=== PATIENT | male | born 1940 | race African-American/Black ===

== ENCOUNTER 2017-11-22 08:51 | Day surgery (SDC) | payer BC ==
[2017-11-19 14:51] VITALS: BMI 27.8
[2017-11-22 10:22] VITALS: TEMP 97.7
[2017-11-22 11:37] VITALS: BP 115/75; PULSE 82
--- NOTE | 2017-11-23 13:34 | PATH ---
Surgical Pathology Report Patient Name: ANTOLIN MCGUIRE [facility]. Rec. #: [id number] /Age/Gender: 1940 (Age: 77) / M Account: [id number] Location: [facility]-ENDOSCOPY Taken: 11/22/2017 Received: 11/22/2017 Reported: 11/23/2017 Physicians: Arianna Basurto M.D. Specimen(s) Received A: BX. DISTAL TRANSVERSE COLON POLYP B: BX. ANASTOMOSIS C: BX. PROXIMAL TRANSVERSE COLON POLYP Clinical History Colon cancer surveillance Postoperative diagnosis: Polyps, status post patent anastomosis, diverticulosis Final Diagnosis A. DISTAL TRANSVERSE COLON, POLYP, BIOPSY: TUBULAR ADENOMA. B. COLON, ANASTOMOSIS, BIOPSY: COLONIC MUCOSA WITH PROMINENT LYMPHOID AGGREGATE. C. PROXIMAL TRANSVERSE COLON, POLYP, BIOPSY: POLYPOID MUCOSA WITH PROMINENT LYMPHOID AGGREGATE. Electronically Signed Britt Martins M.D. Gross Description A. Received in formalin, labeled "biopsy distal transverse colon polyp" are 2 sanchez, irregular portions of soft tissue measuring 0.2 and 0.3 cm. in greatest dimension. The specimens are submitted in toto in one cassette. B. Received in formalin, labeled "biopsy anastomosis" are 5 sanchez, irregular portions of soft tissue ranging from 0.2-0.5 cm. in greatest dimension. The specimens are submitted in toto in one cassette. C. Received in formalin, labeled "biopsy proximal transverse colon polyp" is a sanchez, irregular portion of soft tissue measuring 0.5 cm. in greatest dimension. The specimen is submitted in toto in one cassette. 11/22/2017 [facility]2017
== END 2017-11-22 11:37 | disposition home or self-care (01) ==
LOC: JASU-ENDO 08:51
PROVIDERS: ATTEND Internal Medicine Gastroenterology
PROC: 0DBL8ZX Excision of Transverse Colon, Via Natural or Artificial Opening Endoscopic, Diagnostic (ICD-10-PCS; principal; 2017-11-22 10:00)
DX: Z12.11 Encounter for screening for malignant neoplasm of colon (principal); Z85.038 Personal history of other malignant neoplasm of large intestine; D12.3 Benign neoplasm of transverse colon; K57.30 Diverticulosis of large intestine without perforation or abscess without bleeding; Z98.0 Intestinal bypass and anastomosis status
CPT/HCPCS: 88305-TC

== ENCOUNTER 2021-02-13 10:54 | Observation (INO) | payer BC ==
[2021-02-13 11:53] VITALS: BMI 24.2
[2021-02-13 12:06] LABS: BASO % 0.4 % (0-2.0); EOS % 0.5 % (0-4.5); HEMATOCRIT 32.9 % (35.4-49); HEMOGLOBIN 10.8 GM/dL (11.7-16.9); LYMPH % 28.8 % (8-40); MCHC 32.8 g/dl (32.0-35.9); MEAN CELL VOLUME 85.4 fl (80-96); MEAN PLT VOLUME 8.7 fl (7.5-11.1); MONO % 7.4 % (3.8-10.2); NEUT % 62.9 % (42.8-82.8); PLATELET COUNT 202 10^3/uL (134-434); RBC 3.85 M/mm3 (4.00-5.60); RDW 16.5 % (11.9-15.9); WHITE BLOOD COUNT 4.6 K/mm3 (4.0-10.0)
[2021-02-13 12:52] LABS: ALBUMIN 3.6 g/dl (3.4-5.0); ALK PHOS 54 U/L (45-117); ANION GAP 6 MMOL/L (8-16); BILIRUBIN,TOTAL 0.5 mg/dL (0.2-1); BLOOD UREA NITROGEN 19.1 mg/dL (7-18); CALCIUM 9.2 mg/dL (8.5-10.1); CHLORIDE 113 mmol/L (98-107); CO2 24 mmol/L (21-32); CREATININE 1.7 mg/dL (0.55-1.3); GLUCOSE,RANDOM 135 mg/dL (74-106); MAGNESIUM 2.2 mg/dL (1.8-2.4); N-TERMINAL BNP 1031.1 pg/ml (5-450); SGOT/AST 22 U/L (15-37); SGPT/ALT 12 U/L (13-61); SODIUM 143 mmol/L (136-145); TOT PROT 7.3 g/dl (6.4-8.2)
[2021-02-13 13:42] LABS: URINE APPEARANCE CLEAR; URINE BILIRUBIN NEGATIVE (NEGATIVE); URINE COLOR YELLOW; URINE GLUCOSE (UA) NEGATIVE (NEGATIVE); URINE KETONE NEGATIVE (NEGATIVE); URINE LEUK ESTERASE NEGATIVE (NEGATIVE); URINE NITRITE NEGATIVE (NEGATIVE); URINE PROTEIN NEGATIVE (NEGATIVE); URINE UROBILINOGEN 0.2 mg/dL (0.2-1.0)
[2021-02-13] MEDS ORDERED: ACETAMINOPHEN 325 MG TABLET (FP) PO PRN (14:23)
[2021-02-13] MEDS ORDERED: MEXILETINE HCL 150 MG PO SCH (14:30)
[2021-02-13] MEDS ORDERED: CARBIDOPA/LEVODOPA 25/100 TABLET (FP) ONE (14:41)
[2021-02-13] MEDS: CARBIDOPA/LEVODOPA 25/100 TABLET (FP) PO SCH ×2 (14:52→21:50)
[2021-02-13 15:13] LABS: RETICULOCYTES 0.84 % (0.5-1.5)
[2021-02-13 15:27] LABS: IRON SERUM 77 ug/dL (50-175); TOTAL IRON BINDING CAPACITY 231 ug/dL (250-450)
[2021-02-13] MEDS ORDERED: MAGNESIUM SULF 50% (8.12 MEQ/2 ML-1 GM VIAL) IVPB ONE (15:54)
[2021-02-13] MEDS ORDERED: MAGNESIUM SULFATE IN WATER 2 GM/50 ML IVPB IVPB ONE (16:17)
[2021-02-13] MEDS ORDERED: MAGNESIUM OXIDE 400 MG TABLET (FP) PO ONE ×2 (19:50→23:59)
[2021-02-13] MEDS ORDERED: PT OWN MED DRAWER 7, Y5N ONE (20:26)
[2021-02-13] MEDS: ATORVASTATIN CA 20 MG TABLET (FP) PO SCH (21:51)
[2021-02-13] MEDS: CARVEDILOL 12.5 MG TABLET (FP) PO SCH (21:55)
[2021-02-13] MEDS: DONEPEZIL HCL 10 MG TABLET (FP) PO SCH (21:56)
[2021-02-13] MEDS: APIXABAN 5 MG TABLET PO SCH (21:57)
[2021-02-13] MEDS ORDERED: APIXABAN 5 MG TABLET PO SCH (22:00)
[2021-02-13] MEDS ORDERED: SACUBITRIL/VALSARTAN 97 MG-103 MG TABLET PO SCH (22:00)
[2021-02-14] MEDS ORDERED: PROCHLORPERAZINE INJECTION 10 MG/2 ML VIAL IM ONE ×2 (02:31)
[2021-02-14] MEDS ORDERED: PROCHLORPERAZINE INJECTION 10 MG/2 ML VIAL IVPB ONE (02:31)
[2021-02-14] MEDS ORDERED: PT OWN MED DRAWER 7, Y5N ONE ×2 (10:09→21:44)
[2021-02-14] MEDS: ALLOPURINOL 100 MG TABLET (FP) PO SCH (10:12)
[2021-02-14] MEDS: APIXABAN 5 MG TABLET PO SCH ×2 (10:12→22:19)
[2021-02-14] MEDS: CARBIDOPA/LEVODOPA 25/100 TABLET (FP) PO SCH ×2 (10:17→22:22)
[2021-02-14] MEDS: SACUBITRIL/VALSARTAN 49 MG-51 MG TABLET PO SCH ×2 (11:04→22:23)
[2021-02-14] MEDS: CARVEDILOL 12.5 MG TABLET (FP) PO SCH ×2 (11:04→22:19)
[2021-02-14 11:46] LABS: HEMATOCRIT 33.6 % (35.4-49); MCH 28.1 pg (25.7-33.7); MCHC 32.6 g/dl (32.0-35.9); MEAN CELL VOLUME 86.3 fl (80-96); MEAN PLT VOLUME 9.5 fl (7.5-11.1); PLATELET COUNT 204 10^3/uL (134-434); RDW 16.1 % (11.9-15.9); WHITE BLOOD COUNT 6.1 K/mm3 (4.0-10.0)
[2021-02-14 12:14] LABS: ALBUMIN 3.3 g/dl (3.4-5.0); CALCIUM 8.9 mg/dL (8.5-10.1)
[2021-02-14 12:15] LABS: BLOOD UREA NITROGEN 18.3 mg/dL (7-18)
[2021-02-14 12:17] LABS: CREATININE 1.4 mg/dL (0.55-1.3)
[2021-02-14 12:18] LABS: PHOSPHOROUS 2.1 mg/dL (2.5-4.9)
[2021-02-14 12:19] LABS: TOT PROT 6.8 g/dl (6.4-8.2)
[2021-02-14 12:20] LABS: BILIRUBIN,TOTAL 0.4 mg/dL (0.2-1)
[2021-02-14] MEDS ORDERED: SODIUM CHLORIDE 0.45% 1,000 ML IV SCH (12:30)
[2021-02-14] MEDS: NAPH,MB-DB/K PH,MBDB POWDER PACKET PO SCH ×2 (14:37→22:22)
[2021-02-14] MEDS: ATORVASTATIN CA 20 MG TABLET (FP) PO SCH (22:20)
[2021-02-14] MEDS: DONEPEZIL HCL 10 MG TABLET (FP) PO SCH (22:21)
[2021-02-15] MEDS ORDERED: PT OWN MED DRAWER 7, Y5N ONE (09:32)
[2021-02-15] MEDS: APIXABAN 5 MG TABLET PO SCH ×2 (09:48→21:05)
[2021-02-15] MEDS: NAPH,MB-DB/K PH,MBDB POWDER PACKET PO SCH ×2 (09:49→21:09)
[2021-02-15] MEDS: ALLOPURINOL 100 MG TABLET (FP) PO SCH (09:49)
[2021-02-15] MEDS: CARVEDILOL 12.5 MG TABLET (FP) PO SCH ×2 (09:49→21:05)
[2021-02-15] MEDS: CARBIDOPA/LEVODOPA 25/100 TABLET (FP) PO SCH ×2 (09:54→21:08)
[2021-02-15] MEDS: SACUBITRIL/VALSARTAN 49 MG-51 MG TABLET PO SCH ×2 (09:54→21:09)
[2021-02-15 11:41] LABS: BASO % 0.3 % (0-2.0); EOS % 0.4 % (0-4.5); HEMOGLOBIN 11.1 GM/dL (11.7-16.9); LYMPH % 23.2 % (8-40); MCH 27.8 pg (25.7-33.7); MCHC 32.7 g/dl (32.0-35.9); MEAN CELL VOLUME 84.9 fl (80-96); MEAN PLT VOLUME 9.5 fl (7.5-11.1); MONO % 12.3 % (3.8-10.2); NEUT % 63.8 % (42.8-82.8); PLATELET COUNT 191 10^3/uL (134-434); RBC 4.01 M/mm3 (4.00-5.60); RDW 16.2 % (11.9-15.9); WHITE BLOOD COUNT 6.7 K/mm3 (4.0-10.0)
[2021-02-15 11:58] LABS: BLOOD UREA NITROGEN 13.3 mg/dL (7-18); CALCIUM 8.9 mg/dL (8.5-10.1)
[2021-02-15 11:59] LABS: ALBUMIN 3.2 g/dl (3.4-5.0); MAGNESIUM 2.1 mg/dL (1.8-2.4)
[2021-02-15 12:02] LABS: CREATININE 1.1 mg/dL (0.55-1.3)
[2021-02-15 12:03] LABS: BILIRUBIN,TOTAL 0.5 mg/dL (0.2-1); PHOSPHOROUS 2.7 mg/dL (2.5-4.9); TOT PROT 6.6 g/dl (6.4-8.2)
[2021-02-15] MEDS: DONEPEZIL HCL 10 MG TABLET (FP) PO SCH (21:05)
[2021-02-15] MEDS: ATORVASTATIN CA 20 MG TABLET (FP) PO SCH (21:08)
[2021-02-16 08:20] LABS: BASO % 0.4 % (0-2.0); EOS % 0.7 % (0-4.5); HEMATOCRIT 33.8 % (35.4-49); HEMOGLOBIN 11.4 GM/dL (11.7-16.9); LYMPH % 30.7 % (8-40); MCH 28.7 pg (25.7-33.7); MCHC 33.6 g/dl (32.0-35.9); MEAN CELL VOLUME 85.3 fl (80-96); MEAN PLT VOLUME 9.6 fl (7.5-11.1); MONO % 15.5 % (3.8-10.2); NEUT % 52.7 % (42.8-82.8); PLATELET COUNT 186 10^3/uL (134-434); RBC 3.97 M/mm3 (4.00-5.60); RDW 16.4 % (11.9-15.9); WHITE BLOOD COUNT 5.4 K/mm3 (4.0-10.0)
[2021-02-16 08:26] LABS: CALCIUM 8.6 mg/dL (8.5-10.1)
[2021-02-16 08:27] LABS: ALBUMIN 3.1 g/dl (3.4-5.0); BLOOD UREA NITROGEN 20.7 mg/dL (7-18)
[2021-02-16 08:30] LABS: CREATININE 1.2 mg/dL (0.55-1.3)
[2021-02-16 08:32] LABS: BILIRUBIN,TOTAL 0.4 mg/dL (0.2-1); TOT PROT 6.4 g/dl (6.4-8.2)
[2021-02-16] MEDS ORDERED: INSULIN (LEVEMIR) 100 UNITS/ML UNITS SQ ONE (08:41)
[2021-02-16 08:54] VITALS: BP 102/63; PULSE 63; TEMP 98.3
[2021-02-16] MEDS: CARBIDOPA/LEVODOPA 25/100 TABLET (FP) PO SCH (10:17)
[2021-02-16] MEDS: ALLOPURINOL 100 MG TABLET (FP) PO SCH (10:17)
[2021-02-16] MEDS: NAPH,MB-DB/K PH,MBDB POWDER PACKET PO SCH (10:17)
[2021-02-16] MEDS: CARVEDILOL 12.5 MG TABLET (FP) PO SCH (10:17)
[2021-02-16] MEDS: APIXABAN 5 MG TABLET PO SCH (10:17)
[2021-02-16] MEDS: SACUBITRIL/VALSARTAN 49 MG-51 MG TABLET PO SCH (10:18)
[2021-02-17] MEDS ORDERED: FUROSEMIDE 20 MG TABLET (FP) PO SCH (10:00)
== END 2021-02-16 13:41 | disposition home or self-care (01) ==
LOC: JER 10:54 → JERBED 11:54 → J4W 18:11
PROVIDERS: ATTEND Internal Medicine
DX: R53.1 Weakness (principal); G20 Parkinson's disease; F02.80 Dementia in other diseases classified elsewhere, unspecified severity, without behavioral disturbance, psychotic disturbance, mood disturbance, and anxiety; E03.9 Hypothyroidism, unspecified; E11.9 Type 2 diabetes mellitus without complications; I10 Essential (primary) hypertension; D64.9 Anemia, unspecified; E78.5 Hyperlipidemia, unspecified; Z85.46 Personal history of malignant neoplasm of prostate; I48.91 Unspecified atrial fibrillation; Z95.810 Presence of automatic (implantable) cardiac defibrillator
CPT/HCPCS: 36415; 71045-TC-FY; 80048; 80053; 80061; 81003; 82550; 82607; 82728; 82746; 82962; 83036; 83540; 83550; 83721; 83735; 83880; 84100; 84484; 85025; 85027; 85045; 87086; 93005; 93010; 93306-TC; 93880-TC; 99291; C9803; G0378; U0003; U0005

== ENCOUNTER 2022-03-09 15:47 | Inpatient (IN) | payer BC ==
[2022-03-09 20:50] LABS: BASO % 0.7 % (0-2.0); EOS % 1.9 % (0-4.5); HEMATOCRIT 38.1 % (35.4-49); HEMOGLOBIN 12.5 GM/dL (11.7-16.9); LYMPH % 28.4 % (8-40); MCH 29.3 pg (25.7-33.7); MCHC 32.8 g/dl (32.0-35.9); MEAN CELL VOLUME 89.6 fl (80-96); MEAN PLT VOLUME 10.2 fl (7.5-11.1); MONO % 12.9 % (3.8-10.2); NEUT % 56.1 % (42.8-82.8); PLATELET COUNT 306 10^3/uL (134-434); RBC 4.25 M/mm3 (4.00-5.60); RDW 16.6 % (11.9-15.9); WHITE BLOOD COUNT 8.2 K/mm3 (4.0-10.0)
[2022-03-09 21:13] LABS: ALBUMIN 3.8 g/dl (3.4-5.0); BLOOD UREA NITROGEN 38.6 mg/dL (7-18); CALCIUM 9.3 mg/dL (8.5-10.1)
[2022-03-09 21:16] LABS: CREATININE 1.5 mg/dL (0.55-1.3)
[2022-03-09 21:18] LABS: BILIRUBIN,TOTAL 0.8 mg/dL (0.2-1); TOT PROT 7.7 g/dl (6.4-8.2)
[2022-03-10 03:03] VITALS: BMI 18.1
[2022-03-10] MEDS ORDERED: HEPARIN NA (PORCINE) 5,000 UNITS/ML 1ML VIAL SQ SCH (06:00)
[2022-03-10 09:24] LABS: HEMATOCRIT 37.1 % (35.4-49); HEMOGLOBIN 11.8 GM/dL (11.7-16.9); MCH 28.9 pg (25.7-33.7); MCHC 31.8 g/dl (32.0-35.9); MEAN CELL VOLUME 90.9 fl (80-96); MEAN PLT VOLUME 10.1 fl (7.5-11.1); PLATELET COUNT 260 10^3/uL (134-434); RBC 4.08 M/mm3 (4.00-5.60); RDW 17.2 % (11.9-15.9); WHITE BLOOD COUNT 6.6 K/mm3 (4.0-10.0)
[2022-03-10 10:05] LABS: ALBUMIN 3.5 g/dl (3.4-5.0)
[2022-03-10 10:06] LABS: MAGNESIUM 2.5 mg/dL (1.8-2.4)
[2022-03-10 10:07] LABS: CALCIUM 9.2 mg/dL (8.5-10.1)
[2022-03-10 10:10] LABS: CREATININE 1.4 mg/dL (0.55-1.3)
[2022-03-10 10:11] LABS: PHOSPHOROUS 3.8 mg/dL (2.5-4.9); TOT PROT 7.1 g/dl (6.4-8.2)
[2022-03-10] MEDS: metoPROLOL SUCCINATE 25 MG TAB.SR.24H (FP) PO SCH ×2 (10:29→21:37)
[2022-03-10] MEDS: CARBIDOPA/LEVODOPA 25/100 TABLET (FP) PO SCH ×2 (10:30→21:36)
[2022-03-10] MEDS: ALLOPURINOL 100 MG TABLET (FP) PO SCH (10:30)
[2022-03-10] MEDS: SACUBITRIL/VALSARTAN 24 MG-26 MG TABLET PO SCH ×2 (10:30→21:35)
[2022-03-10] MEDS: MIDODRINE HCL 5 MG TABLET PO SCH ×3 (10:30→18:06)
[2022-03-10] MEDS: DONEPEZIL HCL 10 MG TABLET (FP) PO SCH (21:33)
[2022-03-10] MEDS: POLYETHYLENE GLYCOL (HEALTHYLAX) 3350 17 GM PACKET PO SCH (21:35)
[2022-03-10] MEDS ORDERED: APIXABAN 5 MG TABLET PO SCH (22:00)
[2022-03-11 00:27] LABS: N-TERMINAL BNP 34728.3 pg/ml (5-450)
[2022-03-11 08:37] LABS: HEMOGLOBIN 11.3 GM/dL (11.7-16.9); MCH 29.5 pg (25.7-33.7); MCHC 33.3 g/dl (32.0-35.9); MEAN CELL VOLUME 88.7 fl (80-96); PLATELET COUNT 254 10^3/uL (134-434); RBC 3.84 M/mm3 (4.00-5.60); RDW 16.7 % (11.9-15.9); WHITE BLOOD COUNT 6.1 K/mm3 (4.0-10.0)
[2022-03-11 08:49] LABS: CHLORIDE 121 mmol/L (98-107); SODIUM 151 mmol/L (136-145)
[2022-03-11 08:56] LABS: ALBUMIN 3.2 g/dl (3.4-5.0); BLOOD UREA NITROGEN 38.4 mg/dL (7-18); CALCIUM 9.2 mg/dL (8.5-10.1); CREATININE 1.2 mg/dL (0.55-1.3)
[2022-03-11 08:58] LABS: BILIRUBIN,TOTAL 0.8 mg/dL (0.2-1); TOT PROT 6.2 g/dl (6.4-8.2)
[2022-03-11 08:59] LABS: BILIRUBIN,DIRECT 0.4 mg/dL (0.0-0.2)
[2022-03-11 09:00] LABS: ALBUMIN 3.1 g/dl (3.4-5.0); ANION GAP 8 MMOL/L (8-16); BLOOD UREA NITROGEN 37.6 mg/dL (7-18); CO2 22 mmol/L (21-32); GLUCOSE,RANDOM 117 mg/dL (74-106)
[2022-03-11 09:01] LABS: CHOLESTEROL 139 mg/dL (50-200); SGOT/AST 73 U/L (15-37); SGPT/ALT 167 U/L (13-61); TRIGLYCERIDES 79 mg/dL (0-150)
[2022-03-11 09:02] LABS: CREATININE 1.2 mg/dL (0.55-1.3); LDL CHOLESTEROL (ONLY SJRH) 97 mg/dL (5-100)
[2022-03-11 09:03] LABS: BILIRUBIN,TOTAL 0.8 mg/dL (0.2-1); TOT PROT 6.2 g/dl (6.4-8.2)
[2022-03-11 09:04] LABS: ALK PHOS 142 U/L (45-117)
[2022-03-11 09:05] LABS: HDL CHOLESTEROL 36 mg/dL (40-60)
[2022-03-11 09:06] LABS: N-TERMINAL BNP > 35000.0 pg/ml (5-450)
[2022-03-11] MEDS: metoPROLOL SUCCINATE 25 MG TAB.SR.24H (FP) PO SCH ×2 (10:40→21:19)
[2022-03-11] MEDS: MIDODRINE HCL 5 MG TABLET PO SCH ×3 (10:40→19:09)
[2022-03-11] MEDS: ALLOPURINOL 100 MG TABLET (FP) PO SCH (10:41)
[2022-03-11] MEDS: APIXABAN 2.5 MG TABLET PO SCH ×2 (10:41→21:18)
[2022-03-11] MEDS: SACUBITRIL/VALSARTAN 24 MG-26 MG TABLET PO SCH ×2 (10:41→21:21)
[2022-03-11] MEDS: CARBIDOPA/LEVODOPA 25/100 TABLET (FP) PO SCH ×2 (10:41→21:18)
[2022-03-11] MEDS: POLYETHYLENE GLYCOL (HEALTHYLAX) 3350 17 GM PACKET PO SCH ×2 (11:09→21:23)
[2022-03-11] MEDS ORDERED: FUROSEMIDE 40 MG/4 ML INJECTABLE VIAL IVPUSH SCH (14:00)
[2022-03-11] MEDS: DONEPEZIL HCL 10 MG TABLET (FP) PO SCH (21:21)
[2022-03-12 08:59] LABS: HEMATOCRIT 35.8 % (35.4-49); HEMOGLOBIN 11.8 GM/dL (11.7-16.9); MCH 29.7 pg (25.7-33.7); MCHC 33.1 g/dl (32.0-35.9); MEAN CELL VOLUME 89.5 fl (80-96); PLATELET COUNT 266 10^3/uL (134-434); RBC 3.99 M/mm3 (4.00-5.60); RDW 16.6 % (11.9-15.9)
[2022-03-12 09:53] LABS: CALCIUM 9.6 mg/dL (8.5-10.1)
[2022-03-12 09:54] LABS: ALBUMIN 3.4 g/dl (3.4-5.0); BLOOD UREA NITROGEN 34.1 mg/dL (7-18); MAGNESIUM 2.7 mg/dL (1.8-2.4)
[2022-03-12 09:57] LABS: CREATININE 1.2 mg/dL (0.55-1.3); PHOSPHOROUS 3.5 mg/dL (2.5-4.9)
[2022-03-12 09:58] LABS: TOT PROT 6.7 g/dl (6.4-8.2)
[2022-03-12] MEDS: MIDODRINE HCL 5 MG TABLET PO SCH ×3 (10:34→17:04)
[2022-03-12] MEDS: CARBIDOPA/LEVODOPA 25/100 TABLET (FP) PO SCH ×2 (10:35→21:51)
[2022-03-12] MEDS: metoPROLOL SUCCINATE 25 MG TAB.SR.24H (FP) PO SCH ×2 (10:35→21:51)
[2022-03-12] MEDS: APIXABAN 2.5 MG TABLET PO SCH ×2 (10:35→21:51)
[2022-03-12] MEDS: ALLOPURINOL 100 MG TABLET (FP) PO SCH (10:35)
[2022-03-12] MEDS: SACUBITRIL/VALSARTAN 24 MG-26 MG TABLET PO SCH (10:36)
[2022-03-12] MEDS: POLYETHYLENE GLYCOL (HEALTHYLAX) 3350 17 GM PACKET PO SCH ×2 (10:36→21:54)
[2022-03-12] MEDS: SODIUM ZIRCONIUM CYCLOSILICATE (LOKELMA) 5 GM PACKET PO SCH (12:35)
[2022-03-12] MEDS: MEXILETINE HCL 150 MG PO SCH ×3 (13:43→17:40)
[2022-03-12] MEDS: DONEPEZIL HCL 10 MG TABLET (FP) PO SCH (21:51)
[2022-03-13 09:36] LABS: HEMATOCRIT 36.7 % (35.4-49); HEMOGLOBIN 12.1 GM/dL (11.7-16.9); MCH 29.8 pg (25.7-33.7); MCHC 32.9 g/dl (32.0-35.9); MEAN CELL VOLUME 90.5 fl (80-96); MEAN PLT VOLUME 10.4 fl (7.5-11.1); PLATELET COUNT 238 10^3/uL (134-434); RBC 4.05 M/mm3 (4.00-5.60); WHITE BLOOD COUNT 7.4 K/mm3 (4.0-10.0)
[2022-03-13] MEDS: MEXILETINE HCL 150 MG PO SCH (09:37)
[2022-03-13 10:00] LABS: ALBUMIN 3.1 g/dl (3.4-5.0); BLOOD UREA NITROGEN 27.9 mg/dL (7-18); CALCIUM 9.1 mg/dL (8.5-10.1)
[2022-03-13 10:05] LABS: BILIRUBIN,TOTAL 0.8 mg/dL (0.2-1); TOT PROT 6.2 g/dl (6.4-8.2)
[2022-03-13] MEDS: metoPROLOL SUCCINATE 25 MG TAB.SR.24H (FP) PO SCH ×2 (10:33→21:21)
[2022-03-13] MEDS: SODIUM ZIRCONIUM CYCLOSILICATE (LOKELMA) 5 GM PACKET PO SCH ×2 (10:33→12:30)
[2022-03-13] MEDS: APIXABAN 2.5 MG TABLET PO SCH ×2 (10:33→21:23)
[2022-03-13] MEDS: ALLOPURINOL 100 MG TABLET (FP) PO SCH (10:34)
[2022-03-13] MEDS: POLYETHYLENE GLYCOL (HEALTHYLAX) 3350 17 GM PACKET PO SCH ×2 (10:34→21:23)
[2022-03-13] MEDS: MIDODRINE HCL 5 MG TABLET PO SCH ×3 (10:34→18:06)
[2022-03-13] MEDS: CARBIDOPA/LEVODOPA 25/100 TABLET (FP) PO SCH ×2 (10:34→21:23)
[2022-03-13 16:01] VITALS: RESP 20
[2022-03-13] MEDS: DONEPEZIL HCL 10 MG TABLET (FP) PO SCH (21:23)
[2022-03-14 07:20] VITALS: PULSE 75
[2022-03-14] MEDS: POLYETHYLENE GLYCOL (HEALTHYLAX) 3350 17 GM PACKET PO SCH (09:42)
[2022-03-14] MEDS: APIXABAN 2.5 MG TABLET PO SCH (09:42)
[2022-03-14] MEDS: CARBIDOPA/LEVODOPA 25/100 TABLET (FP) PO SCH (09:42)
[2022-03-14] MEDS: MIDODRINE HCL 5 MG TABLET PO SCH ×3 (09:43→17:48)
[2022-03-14] MEDS: ALLOPURINOL 100 MG TABLET (FP) PO SCH (09:43)
[2022-03-14] MEDS: metoPROLOL SUCCINATE 25 MG TAB.SR.24H (FP) PO SCH (09:45)
[2022-03-14] MEDS ORDERED: SACUBITRIL/VALSARTAN 24 MG-26 MG TABLET PO SCH (10:00)
[2022-03-14 11:34] LABS: HEMATOCRIT 37.2 % (35.4-49); HEMOGLOBIN 11.9 GM/dL (11.7-16.9); MCH 28.2 pg (25.7-33.7); MCHC 31.8 g/dl (32.0-35.9); MEAN CELL VOLUME 88.6 fl (80-96); MEAN PLT VOLUME 11.3 fl (7.5-11.1); PLATELET COUNT 261 10^3/uL (134-434); RDW 16.6 % (11.9-15.9); WHITE BLOOD COUNT 6.5 K/mm3 (4.0-10.0)
[2022-03-14 11:50] LABS: ALBUMIN 3.1 g/dl (3.4-5.0)
[2022-03-14 11:51] LABS: BLOOD UREA NITROGEN 23.6 mg/dL (7-18); CREATININE 1.1 mg/dL (0.55-1.3)
[2022-03-14 11:52] LABS: BILIRUBIN,TOTAL 0.8 mg/dL (0.2-1); CALCIUM 8.9 mg/dL (8.5-10.1); TOT PROT 6.6 g/dl (6.4-8.2)
[2022-03-14 17:39] VITALS: BP 120/78; TEMP 96.7
== END 2022-03-14 19:05 | disposition home health service (06) | DRG 640 ==
LOC: JER 15:47 → JERBED 21:54 → INTOOBSV 21:54 → J8W 03-10 02:28 → OBSVTOIN 03-11 08:26
PROVIDERS: ADMIT Internal Medicine; ATTEND Internal Medicine
DX: E86.0 Dehydration (principal); E43 Unspecified severe protein-calorie malnutrition; N17.9 Acute kidney failure, unspecified; I50.22 Chronic systolic (congestive) heart failure; I13.0 Hypertensive heart and chronic kidney disease with heart failure and stage 1 through stage 4 chronic kidney disease, or unspecified chronic kidney disease; I48.20 Chronic atrial fibrillation, unspecified; Z68.1 Body mass index [BMI] 19.9 or less, adult; B19.10 Unspecified viral hepatitis B without hepatic coma; E87.0 Hyperosmolality and hypernatremia; F03.90 Unspecified dementia, unspecified severity, without behavioral disturbance, psychotic disturbance, mood disturbance, and anxiety; G20 Parkinson's disease; R74.01 Elevation of levels of liver transaminase levels; E87.5 Hyperkalemia; N18.9 Chronic kidney disease, unspecified; E78.5 Hyperlipidemia, unspecified; K59.00 Constipation, unspecified; E11.22 Type 2 diabetes mellitus with diabetic chronic kidney disease; M10.9 Gout, unspecified; I95.9 Hypotension, unspecified; I49.3 Ventricular premature depolarization; M79.10 Myalgia, unspecified site; Z79.01 Long term (current) use of anticoagulants; Z95.0 Presence of cardiac pacemaker; R00.2 Palpitations; R94.5 Abnormal results of liver function studies
CPT/HCPCS: 36415; 71045-TC-FY; 74176-TC; 76705-TC; 80048; 80053; 80061; 80076; 80307; 82550; 82962; 83690; 83735; 83880; 84100; 85025; 85027; 86704; 86803; 87340; 87517; 93005; 93010; 93306-TC; 97116-GP; 97161-GP; 99285-25; C9803-CS; G0378; J1644; U0003; U0005